=== PATIENT | female | born 1965 | race Caucasian/White ===

== ENCOUNTER 2016-06-24 17:28 | Emergency (ER) | payer OTHER ==
[2016-06-24] MEDS ORDERED: IOPAMIDOL 370 (76%) 100 ML VIAL IV ONE (17:29)
[2016-06-24] MEDS ORDERED: ACETAMINOPHEN 500 MG TABLET ONE (18:38)
[2016-06-24] MEDS ORDERED: FAMOTIDINE 10 MG/ML 2ML VIAL ONE (18:38)
[2016-06-24] MEDS ORDERED: MORPHINE SULFATE 4 MG/ML SYRINGE ONE (18:38)
[2016-06-24 18:56] LABS: ABSOLUTE NEUTROPHIL COUNT 10.1 K/mm3 (1.8-7.7); BASO # 0.1 K/mm3 (0.0-0.2); BASO % 0.4 % (0.2-1.0); EOS % 0.2 % (0.9-2.9); HEMATOCRIT 44.8 % (37.0-47.0); HEMOGLOBIN 14.8 gm/l (12.0-16.0); IMM NEUT # 0.1 K/mm3 (0-0.2); IMM NEUT% 0.8 % (0-1); LYMPH # 2.3 (1.0-4.8); LYMPH % 17.3 % (15-45); MEAN CELL VOLUME 88.2 fl (81.0-99.0); MEAN CORPUSCULAR HEMOGLOBIN 29.1 pg (27.0-31.0); MEAN PLATELET VOLUME 10.7 fl (7.4-10.4); MONO # 0.6 (0.0-0.8); MONO % 4.7 % (4-12); NEUT % 76.6 % (43-75); PLATELET COUNT 361 K/mm3 (130-400)
[2016-06-24 19:11] LABS: ALB/GLOB RATIO 1.3 (>1.0); ALBUMIN 4.5 gm/dL (3.5-5.7); ALT/SGPT 22 U/L (7-52); BLOOD UREA NITROGEN 11 mg/dL (7-25); BUN/CREATININE RATIO 16 (6-20); CALCIUM 10.6 mg/dL (8.6-10.3); GLOMERULAR FILTRATION RATE 89 mL/min (60-99); MAGNESIUM 2.2 mg/dL (1.9-2.7)
[2016-06-24 19:17] LABS: LIPASE < 3 U/L (11-82)
[2016-06-24 19:38] LABS: SPECIFIC GRAVITY 1.015 (1.001-1.030); URINE BILIRUBIN NEGATIVE (NEGATIVE); URINE BLOOD NEGATIVE (NEGATIVE); URINE GLUCOSE (UA) NEGATIVE (NEGATIVE); URINE LEUKOCYTE ESTERASE TRACE (NEGATIVE); URINE NITRITE NEGATIVE (NEGATIVE); URINE PROTEIN TRACE (NEGATIVE); URINE UROBILINOGEN NORMAL (0-1 mg/dl)
[2016-06-24 19:41] LABS: URINE APPEARANCE SL CLOUDY; URINE COLOR YELLOW
--- NOTE | 2016-06-24 19:51 | CT ---
HEAD CT WITHOUT CONTRAST HISTORY: Status post fall with head injury No intravenous contrast administered. Contiguous axial images acquired from skull base to vertex. COMPARISON:None. BRAIN VOLUME:Grossly unremarkable for patient age. VENTRICULAR SIZE:No gross ventriculomegaly. FOCAL MASS EFFECT: No gross mass effect minimal calcification along the right sylvian fissure, 3 mm in size. ACUTE INTRACRANIAL HEMORRHAGE:None. CALVARIUM:Grossly intact. VISIBLE PARANASAL SINUSES AND MASTOID AIR CELLS: Low attenuation content seen dependently within the right maxillary sinus IMPRESSION: No gross mass effect, depressed calvarial fracture, or acute intracranial hemorrhage. Correlate for right maxillary sinusitis. Results were electronically transmitted to the electronic medical record at 06/24/2016 at 1947 hours.
[2016-06-24 19:52] LABS: URINE RBC 0 /hpf
[2016-06-24 19:53] LABS: URINE BACTERIA 1+
[2016-06-24] MEDS ORDERED: OXYCODONE HCL 5 MG TABLET ONE (19:56)
[2016-06-24] MEDS ORDERED: KETOROLAC TROMETHAMINE 15 MG/ML VIAL ONE (19:56)
--- NOTE | 2016-06-24 19:57 | CT ---
THORACIC SPINE CT WITHOUT CONTRAST HISTORY: Ground-level fall with midline thoracic spine tenderness. No intravenous contrast administered. Contiguous axial images acquired from the the upper C5 to T12-L1 level. FINDINGS: ALIGNMENT: Subtle dextroconvex curvature. DISC SPACES: Preserved. COMPRESSION DEFORMITY: No compression deformity. FRACTURE: No displaced acute fracture. Small rounded calcification below the T5 spinous process.. CANAL STENOSIS: No gross canal compromise. NEURAL FORAMINA: No gross narrowing. PARASPINAL SOFT TISSUES: No gross mass effect. Minor upper lobe emphysema. IMPRESSION: No displaced acute fracture or gross malalignment. Early emphysematous change of the upper lungs. Results were electronically transmitted to the electronic medical record at 06/24/2016 at 1953 hours.
--- NOTE | 2016-06-24 20:03 | CT ---
CT ABDOMEN AND PELVIS WITH CONTRAST HISTORY: Epigastric abdominal pain. Lumbar spine midline tenderness. TECHNIQUE: Following intravenous administration of 100cc of Isovue-370, contiguous axial images were acquired from the lung bases to the ischial tuberosities. Oral contrast was not administered. COMPARISON:None. FINDINGS: LUNG BASES: No gross airspace consolidation or pleural effusion. LIVER: Hepatomegaly with diffuse fatty infiltration. No focal lesions observed. SPLEEN: No focal lesion. PANCREAS: No focal lesion. ADRENAL GLANDS: No mass effect. KIDNEYS: 1.6 cm left upper pole cyst with suggested 8 mm cyst at the interpolar region. Right-sided cysts measuring up to 1.9 cm in size. No collecting system dilatation. GALLBLADDER: Present. BOWEL: Moderate fecal loading. Limited assessment of the distal colon due to decompression. No abnormal small bowel dilatation. APPENDIX: Not seen. PELVIC ORGANS: No gross mass effect. FREE FLUID: No gross free fluid identified. ABDOMINOPELVIC LYMPH NODES: No abnormally enlarged lymph nodes identified. ABDOMINAL AORTA: Minimal atherosclerotic calcifications. No aneurysmal dilatation. OSSEOUS STRUCTURES: Prominent lumbar disc degeneration and foraminal narrowing at the L4-5 and L5-S1 levels. Degenerative change of the sacroiliac joints left greater than right. No displaced fracture. IMPRESSION: No free fluid or evidence of solid organ injury. Notable hepatomegaly with fatty infiltration. Small renal cysts. Findings of lower lumbar spondylosis, no displaced fracture identified. Results were electronically transmitted to the electronic medical record at 06/24/2016 at 1959 hours.
[2016-06-24] MEDS ORDERED: LIDOCAINE 5% PATCH ONE (20:11)
== END 2016-06-24 20:45 | disposition home or self-care (01) ==
LOC: ED 17:28
DX: R10.13 Epigastric pain (principal); R51 Headache; M54.9 Dorsalgia, unspecified; M51.36 Other intervertebral disc degeneration, lumbar region; F17.210 Nicotine dependence, cigarettes, uncomplicated; W16.212A Fall in (into) filled bathtub causing other injury, initial encounter; Y93.E1 Activity, personal bathing and showering; Y92.002 Bathroom of unspecified non-institutional (private) residence as the place of occurrence of the external cause
CPT/HCPCS: 83690; 85025; 80053; 83735; 81001; 74177; 70450; 72128; 96375 ×2; 99284 ×2; 96374; 96361 ×2; A9270 ×3; J2270; J1885; Q9967